=== PATIENT | male | born 1975 | race Caucasian/White ===

== ENCOUNTER 2018-09-20 17:44 | Emergency (ER) | payer SELFPAY ==
[2018-09-20 17:44] VITALS: BMI 27.3
[2018-09-20] MEDS ORDERED: Sodium Chloride 0.9% 1,000 ML IV STA (20:49)
--- NOTE | 2018-09-20 20:52 | ED PDOC ---
HPI: Abdomen Time Seen by Provider: 09/20/18 20:34 Chief Complaint (Nursing): Abdominal Pain Chief Complaint (Provider): abdominal pain History Per: Patient History/Exam Limitations: no limitations Onset/Duration Of Symptoms: Days (4 months), Waxing/Waning Current Symptoms Are (Timing): Still Present Location Of Pain/Discomfort: LLQ Associated Symptoms: Constipation Additional Complaint(s): 43 y/o male presents for evaluation of intermittent abdominal pain x 4 months. Associated bloating, constipation. Patient states when he does have a bowel movements he strains and sometimes sees blood in the toilet. Patient presents tonight due to worsening pain on the left lower side. Denies fever, nausea/vomiting, chest pain, shortness of breath, palpitations, urinary symptoms, recent travel. Past Medical History Reviewed: Historical Data, Nursing Documentation, Vital Signs Vital Signs: Last Vital Signs Temp 98.5 F 09/20/18 19:37 Pulse 79 09/20/18 19:37 Resp 18 09/20/18 19:37 BP 119/76 09/20/18 19:37 Pulse Ox 99 09/20/18 19:37 - Medical History PMH: No Chronic Diseases - Surgical History Surgical History: No Surg Hx - Family History Family History: States: Unknown Family Hx - Immunization History Hx Tetanus Toxoid Vaccination: No Hx Influenza Vaccination: No Hx Pneumococcal Vaccination: No - Home Medications Home Medications: Ambulatory Orders Medication Instructions Recorded Docusate Sodium [Colace] 100 mg PO BID #30 capsule 09/20/18 Polyethylene Glycol 3350 [Miralax] 17 gm PO DAILY PRN #7 powd.pack 09/20/18 - Allergies Allergies/Adverse Reactions: Allergies Allergy/AdvReac Type Severity Reaction Status Date / Time No Known Allergies Allergy Unverified 09/20/18 19:37 Review of Systems ROS Statement: Except As Marked, All Systems Reviewed And Found Negative Gastrointestinal: Positive for: Abdominal Pain, Constipation, Hematochezia Physical Exam - Reviewed Nursing Documentation Reviewed: Yes Vital Signs Reviewed: Yes - Physical Exam Appears: Positive for: Well, Non-toxic, No Acute Distress Head Exam: Positive for: ATRAUMATIC, NORMAL INSPECTION, NORMOCEPHALIC Skin: Positive for: Normal Color Eye Exam: Positive for: Normal appearance ENT: Positive for: Normal ENT Inspection Cardiovascular/Chest: Positive for: Regular Rate, Rhythm Respiratory: Positive for: Normal Breath Sounds Gastrointestinal/Abdominal: Positive for: Bowel Sounds, Soft, Tenderness (LLQ) Back: Positive for: Normal Inspection Rectal: Positive for: Normal Exam, 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 Negative for: Hemorrhoids Extremity: Positive for: Normal ROM Neurologic/Psych: Positive for: Alert, Oriented (x3) - Laboratory Results Result Diagrams: 09/20/18 21:09 09/20/18 21:09 - ECG O2 Sat by Pulse Oximetry: 99 - Progress ED Course And Treament: -cbc -cmp -urinalysis -CT abd/pelvis with IV contrast -IV NS bolus -IV toradol EXAM: CT Abdomen and Pelvis with IV contrast CLINICAL HISTORY: LLQ PAIN, BLOOD IN STOOL TECHNIQUE: Axial computed tomography images of the abdomen and pelvis with intravenous contrast. 711.36 mGy-cm CONTRAST: With; [id number] 95ML COMPARISON: None provided. FINDINGS: LUNG BASES: The lung bases appear clear. No pleural effusions are seen. LIVER: Unremarkable except for a 8 mm right hepatic lobe cyst. GALLBLADDER AND BILE DUCTS: The gallbladder is contracted. No radioopaque gallstones are seen. No biliary ductal dilatation is evident. PANCREAS: Unremarkable. SPLEEN: Unremarkable. ADRENAL GLANDS: Unremarkable. KIDNEYS, URETERS, AND BLADDER: The kidneys appear within normal limits. There is no hydronephrosis or hydroureter. No urinary calculi are seen. STOMACH AND BOWEL: Unremarkable appearance of the stomach and bowel. No evidence of bowel obstruction. No evidence suggesting enteritis or colitis. APPENDIX: No evidence of acute appendicitis on CT examination. PERITONEUM: No free fluid. No free air. LYMPH NODES: No lymphadenopathy is evident. REPRODUCTIVE: Unremarkable as visualized. VASCULATURE: No evidence of abdominal aortic aneurysm. BONES: No aggressive appearing osseous lesion. No acute osseous pathology evident. IMPRESSION: No acute intra-abdominal or pelvic abnormality. On re-eval, patient states pain improved Patient educated on findings, discharged with rx Miralax, Colace Advised fluids, high fiber diet Follow up with PMD within 2-3 days Return precautions given Disposition - Clinical Impression Clinical Impression: Abdominal pain, Constipation, Blood in stool - Patient ED Disposition Is Patient to be Admitted: No Counseled Patient/Family Regarding: Studies Performed, Diagnosis, Need For Followup, Rx Given - Disposition Referrals: [facility] [Outside] Disposition: Routine/Home Disposition Time: 23:34 Condition: IMPROVED Prescriptions: Docusate Sodium [Colace] 100 mg PO BID #30 capsule Polyethylene Glycol 3350 [Miralax] 17 gm PO DAILY PRN #7 powd.pack PRN Reason: Constipation Instructions: Constipation in Adults, Acute Abdomen (Belly Pain) Forms: [employer] (Jamaican) Print Language: TELUGU
[2018-09-20 21:16] LABS: BASO % 0.4 % (0.0-2.0); EOS # 0.3 K/uL (0.0-0.7); EOS % 2.9 % (0.0-4.0); HEMOGLOBIN 15.7 g/dL (12.0-18.0); LYMPH # 2.7 K/uL (1.0-4.3); LYMPH % 24.1 % (20.0-40.0); MEAN CELL VOLUME 89.2 fl (80.0-94.0); MEAN CORPUSCULAR HEMOGLOBIN 29.8 pg (27.0-31.0); MEAN CORPUSCULAR HGB CONC 33.4 g/dL (33.0-37.0); MONO # 0.8 K/uL (0.0-0.8); MONO % 6.9 % (0.0-10.0); NEUT # 7.4 K/uL (1.8-7.0); NEUT % 65.7 % (50.0-75.0); RBC 5.26 Mil/uL (4.40-5.90); RED CELL DISTRIBUTION WIDTH 13.4 % (11.5-14.5); WHITE BLOOD COUNT 11.3 K/uL (4.8-10.8)
[2018-09-20 21:23] LABS: ALB/GLOB RATIO 1.3 (1.0-2.1); ALBUMIN 4.2 g/dL (3.5-5.0); ALT/SGPT 31 U/L (21-72); AST/SGOT 23 U/L (17-59); BLOOD UREA NITROGEN 16 mg/dl (9-20); CALCIUM 9.2 mg/dL (8.4-10.2); GFR NON-AFRICAN AMERICAN > 60
[2018-09-20 21:24] LABS: URINE BACTERIA RARE (<OCC); URINE BILIRUBIN NEGATIVE (NEGATIVE); URINE BLOOD NEGATIVE (NEGATIVE); URINE CLARITY SLIGHTY-CLOUDY (Clear); URINE COLOR YELLOW (YELLOW); URINE GLUCOSE (UA) NEG (NEGATIVE); URINE LEUKOCYTE ESTERASE NEG Leu/uL (Negative); URINE PROTEIN NEGATIVE (NEGATIVE); URINE UROBILINOGEN 0.2-1.0 mg/dL (0.2-1.0)
[2018-09-20] MEDS ORDERED: Sodium Chloride 0.9% 50 ML IV ONE (22:55)
[2018-09-20] MEDS ORDERED: Iohexol 300 100 ML IJ ONE (22:55)
[2018-09-20 23:44] VITALS: BP 132/72; PULSE 74; RESP 16; TEMP 98.2; O2SAT 100
--- NOTE | 2018-09-21 06:56 | CT ---
Date of service: 09/20/2018 PROCEDURE: CT Abdomen and Pelvis with contrast HISTORY: llq pain, blood in stool COMPARISON: None. TECHNIQUE: Contrast dose: Radiation dose: Total exam DLP = 711.36 mGy-cm. This CT exam was performed using one or more of the following dose reduction techniques: Automated exposure control, adjustment of the mA and/or kV according to patient size, and/or use of iterative reconstruction technique. FINDINGS: LOWER THORAX: Unremarkable. LIVER: Unremarkable. No gross lesion or ductal dilatation. GALLBLADDER AND BILE DUCTS: Unremarkable. PANCREAS: Unremarkable. No gross lesion or ductal dilatation. SPLEEN: Unremarkable. ADRENALS: Unremarkable. No mass. KIDNEYS AND URETERS: Unremarkable. No hydronephrosis. No solid mass. VASCULATURE: Unremarkable. No aortic aneurysm. No aortic atherosclerotic calcification or mural plaque present. BOWEL: Unremarkable. No obstruction. No gross mural thickening. APPENDIX: Normal appendix. PERITONEUM: Unremarkable. No free fluid. No free air. LYMPH NODES: Unremarkable. No enlarged lymph nodes. BLADDER: Unremarkable. REPRODUCTIVE: Unremarkable. BONES: No acute fracture. OTHER FINDINGS: None. IMPRESSION: Unremarkable contrast enhanced CT of the abdomen and pelvis.
== END 2018-09-20 23:48 | disposition home or self-care (01) ==
LOC: H.ER 17:44
DX: R10.9 Unspecified abdominal pain (principal); K59.00 Constipation, unspecified; K92.1 Melena
CPT/HCPCS: 74177; 80053; 81003; 85025; 96360; 96361; 99283; J1885; J7030; Q9967